=== PATIENT | male | born 1950 | race Caucasian/White ===

== ENCOUNTER → 2019-04-28 | Outpatient (CLI) | payer MEDICARE, BC ==
[~2019-04-28] MED LIST: Iopamidol 612 MG/ML 100 ML Bottle IVPUSH ONE
== END ==
LOC: DL.CT 11:25
PROVIDERS: ATTEND Nurse Practitioner
DX: R10.32 Left lower quadrant pain (principal); K63.89 Other specified diseases of intestine; K40.90 Unilateral inguinal hernia, without obstruction or gangrene, not specified as recurrent; M51.37 Other intervertebral disc degeneration, lumbosacral region
CPT/HCPCS: 74177; Q9967